=== PATIENT | male | born 1985 | race Caucasian/White ===

== ENCOUNTER 2016-12-23 21:18 | Emergency (ER) | payer BC ==
[2016-12-23] MEDS ORDERED: LIDOCAINE 1% MDV 20 ML ONE (21:33)
== END 2016-12-23 22:10 | disposition home or self-care (01) ==
LOC: FASTR 21:18
DX: S61.215A Laceration without foreign body of left ring finger without damage to nail, initial encounter (principal); W26.0XXA Contact with knife, initial encounter; Y92.019 Unspecified place in single-family (private) house as the place of occurrence of the external cause